=== PATIENT | male | born 1970 | race Caucasian/White ===

== ENCOUNTER 2017-01-18 15:05 | Outpatient (CLI) | payer OTHER | END 2017-01-18 15:06 | disposition home or self-care (01) | DX: G47.33 Obstructive sleep apnea (adult) (pediatric) (principal) ==

== ENCOUNTER 2021-04-16 15:49 | Outpatient (CLI) | payer OTHER ==
[2021-04-16 16:35] VITALS: BP 151/80
--- NOTE | 2021-04-16 16:35 | SLEEP CARE CONSULTATION ---
Information from patient questionnaire entered by Connie Arias. I have reviewed and concur with the information entered by Connie Arias. This document represents the service I personally performed and the decisions made by me, Adela Abrams ARNP. History of Present Illness Service Date and Time: 04/16/2021 1549 Reason for Visit: New patient, Other (Update supplies) Chief Complaint: reports: Other (just needs supplies) Usual bedtime: 8 PM Time it takes to fall asleep: 5-7 minutes Snores at night: No Observed to quit breathing while asleep: No Sleeps alone due to snoring: No Number of times waking at night: Once - maybe Reasons for waking at night: reports: Bathroom Toss, Turn, or Twitch while sleeping: No Recalls having dreams: No Usually gets out of bed at: 4 AM Feels refreshed in the morning: Yes Morning headache: No Sleepy or fatigued during the day: No Ever fallen asleep while driving: No Takes day naps: No Prior sleep studies: Yes Year and Where: 2012 [facility] Additional HPI information: MAGNUS COLON was previously diagnosed to have mild, AHI 10.2, obstructive sleep apnea-hypopnea syndrome and comes in today to re-establish care for CPAP. - Parasomnia Symptoms Ever been unable to move upon waking from sleep: No Walks in sleep: No Talks in sleep: No Ever acted out dreams in sleep: No Ever felt weak in the knees when startled or emotional: No Bothered by creepy, crawly, restless sensations in legs: No Problems with memory or concentration: No CPAP Compliance Data - Data Reviewed with Patient Average duration of nightly device use: 7 h 35 min Compliance rate %: 99 Current pressure setting (cmH2O): 12 Average residual AHI: 2.2 Compliance data discussion: He gets his supplies from [employer], but they don't take insurance anymore and he needs a new supplier. He is using a nasal pillows mask. He has a back up mask if needed. He changed his mask on Wednesday. He uses a So [employer]. Subjective Patient concerns: reports: condensation in mask/hose (occasionally in the mask, when laying on face). denies: aerophagia, mask discomfort, air blowing in eyes, mask leak noise, nasal congestion, dry mouth, nose, throat, epistaxis, other Observed to snore while using device: No Current pressure setting perceived as: comfortable On therapy, patient: reports: sleeping better, awakening more refreshed, being more awake and alert during the day, more rested overall. 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 Patient is and lives in [place]. Have you smoked in the past 12 months: No Alcohol use: No Caffeine use: Yes Caffeine amount and frequency: 12 oz bottle, 1-2 daily Family History Family history of sleep disordered breathing: No Allergies and Home Medications Drug allergies reviewed: Yes (NKDA) Home medication list reviewed: Yes Allergy and home medication list: Lisinopril 40 mg daily Review of Systems Weight gain over past 5 years: 10 Weight loss over past 5 years: ? Cardiovascular: reports: high blood pressure Gastrointestinal: denies: heartburn Neurological: denies: headaches Psychiatric: denies: anxiety, depression Ear/Nose/Throat: denies: tonsillectomy Immunologic: denies: allergies to food or environment Physical Exam Blood Pressure: 151/80 Cuff size: wrist Heart Rate: 55 O2 Saturation: 98 Height: 5 ft 9 in Weight: 244 lb Body Mass Index: 36.0 BMI Classification: Obese Heart: regular rate and rhythm Lungs: clear bilaterally Impression and Plan 1. Obstructive Sleep Apnea-Hypopnea Syndrome, mild, with excellent treatment compliance and good apnea control. On CPAP therapy, the patient has better sleep quality and is more rested overall. He states [employer] no longer takes his insurance so he needs a new supplier. I will have my nurse coordinator inform of DME options. A DWO prescription will then be made. Patient advised to contact this office if further supply problems. Patient has good compliance and is satisfied with his treatment. He states he cannot sleep without it. I will follow-up with him next year or sooner if needed. Patient's apnea severity and rationale for treatment to reduce apnea, improve sleep quality and reduce cardiovascular and cerebrovascular events was reviewed. I also reviewed the benefit of consistent device use of CPAP for hypertension. * Continue autoCPAP pressure at 12 cmH2O * Transfer DME * Update supplies as needed * Notify me if snoring with mask or feeling that the pressure is too much or too little * Attempt to lose weight * Call this office if any problems using CPAP * Return for follow up in 1 year, or sooner if concerns arise Counseling Topics: Spare mask, Weight loss health impact Visit Type: In Office Time Spent with Patient (minutes): 30 Provider Statement: I spent 100% of the Face to Face Visit with the patient with greater than 50% spent counseling the patient and coordination of care.
== END 2021-04-16 15:50 | disposition home or self-care (01) ==
LOC: SC 15:49
PROVIDERS: ATTEND Nurse Practitioner Family
DX: G47.33 Obstructive sleep apnea (adult) (pediatric) (principal); E66.01 Morbid (severe) obesity due to excess calories; Z68.36 Body mass index [BMI] 36.0-36.9, adult
CPT/HCPCS: 99203; 99212

== ENCOUNTER 2022-07-30 15:24 | Outpatient (CLI) | payer OTHER ==
[2022-07-30 15:50] VITALS: BP 138/86
--- NOTE | 2022-07-30 15:50 | SLEEP CARE CONSULTATION ---
Information from patient questionnaire entered by Candace Ramon. I have reviewed and concur with the information entered by Candace Ramon. This document represents the service I personally performed and the decisions made by me, Adela Abrams ARNP. History of Present Illness Service Date and Time: 07/30/2022 1524 Previous diagnosis: Mild, Obstructive Sleep Apnea-Hypopnea Syndrome AHI: 10.2 (in 2012) Reason for follow up: annual (LAST SEEN 04/2021 POS RESMED USER) Equipment type: CPAP (ResMed) Equipment obtained from: Other ([facility]; getting supplies) Mask style: Nasal pillows Mask brand: [employer] Backup mask available: Yes (other mask) Last cushion change: on Wednesday Prior sleep studies: Yes Year and Where: 2012 [facility] poly HPI additional information: MAGNUS COLON was diagnosed to have mild, AHI 10.2, obstructive sleep apnea- hypopnea syndrome and returned today for CPAP therapy annual follow-up. Sleep Study - Results Prior sleep studies: Yes Year and Where: 2012 [facility] poly CPAP Compliance Data - Data Reviewed with Patient Average duration of nightly device use: 7 hrs 37 min Compliance rate %: 100 (07/12/2021-03-30-; 180/180 days used) Current pressure setting (cmH2O): 12 Average residual AHI: 2.1 Central apnea: 0.1 Obstructive apnea: 1.7 Subjective Patient concerns: denies: aerophagia, mask discomfort, air blowing in eyes, mask leak noise, condensation in mask/hose, nasal congestion, dry mouth, nose, throat, epistaxis Observed to snore while using device: No Current pressure setting perceived as: comfortable On therapy, patient: reports: sleeping better, awakening more refreshed, being more awake and alert during the day, more rested overall. denies: drowsiness while driving Initial [place] Sleepiness Scale score: 4 (in 2020 (7 in 2012) Current [place] Sleepiness Scale score: 4 (07/30/2022) Allergies and Home Medications Drug allergies reviewed: Yes (NKDA) Home medication list reviewed: Yes (no changes) Review of Systems Review of systems same as previous: Yes (no changes) Physical Exam Vital signs obtained and entered by: CANDACE Couch MA Blood Pressure: 138/86 (left arm) Cuff size: long Heart Rate: 61 O2 Saturation: 98 Height: 5 ft 9 in Weight: 241 lb 12.8 oz Body Mass Index: 35.6 BMI Classification: Obese Impression and Plan 1. Obstructive Sleep Apnea-Hypopnea Syndrome, mild, with good treatment compliance and good apnea control. On CPAP therapy, the patient has better sleep quality and is more rested overall. Patient has a ResMed Airsense 10 that was last updated 02/2017. The patients CPAP is over 5 years old and of reasonable use. In addition, its modem is 3 G and no longer supported. Thus, the CPAP will be updated. A DWO prescription will be made. Compliance guidelines for new device and follow up discussed. Patient has significant improvement of their sleep apnea and are satisfied with current CPAP therapy. Patient denies problems with oral dryness, nasal congestion, epistaxis, skin irritation or aerophagia. Patient's apnea severity and rationale for treatment to reduce apnea, improve sleep quality and reduce cardiovascular and cerebrovascular events was reviewed. I also reviewed the benefit of consistent device use of CPAP for hypertension. 2. Obesity, unspecified. Currently patients BMI is 35.6. Obesity increases the risk of apnea, CPAP pressure requirements and overall health risks especially cardiovascular and diabetes. Thus patient is advised to lose weight. * Continue CPAP pressure at 12 cmH2O * Update machine * Updates supplies * Notify me if snoring with mask or feeling that the pressure is too much or too little * Attempt to lose weight * Call this office if any problems using CPAP * Return for follow up one month after obtaining new device, or sooner if concerns arise Counseling Topics: Spare mask, Weight loss health impact Visit Type: In Office Time Spent with Patient (minutes): 21 Provider Statement: I spent 100% of the Face to Face Visit with the patient with greater than 50% spent counseling the patient and coordination of care.
== END 2022-07-30 15:25 | disposition home or self-care (01) ==
LOC: SC 15:24
PROVIDERS: ATTEND Nurse Practitioner Family
DX: G47.33 Obstructive sleep apnea (adult) (pediatric) (principal); E66.9 Obesity, unspecified; Z68.35 Body mass index [BMI] 35.0-35.9, adult
CPT/HCPCS: 99212; 99213

== ENCOUNTER 2024-03-28 14:42 | Outpatient (CLI) | payer OTHER ==
--- NOTE | 2024-03-28 15:32 | Sleep Patient Instructions ---
Sleep Center Visit Summary - Patient Visit Information Reason for Visit: Annual follow-up - Patient Instructions Additional Instructions: You will continue with CPAP therapy with pressure set at 12 cmH2O. A supply prescription will be updated with your DME. We encourage you to continue to try to lose weight. Please follow up with the sleep care office in 1 year. - Clinic Information Contact[facility] [address] [place] [address] [email or web address] T: [phone]
--- NOTE | 2024-03-28 15:36 | SLEEP CARE CONSULTATION ---
Information from patient questionnaire entered by Dory Ramon. I have reviewed and concur with the information entered by Dory Ramon. This document represents the service I personally performed and the decisions made by me, Adela Abrams ARNP. History of Present Illness Service Date and Time: 03/28/2024 1442 Previous diagnosis: Mild, Obstructive Sleep Apnea-Hypopnea Syndrome AHI: 10.2 (in 2012) Reason for follow up: annual (LAST SEEN 07/2022) Equipment type: CPAP (ResMed NEED MACHINE) Equipment obtained from: Other ([facility]; getting supplies) Mask style: Nasal pillows Mask brand: Resmed (Airfit [id number]) Backup mask available: No Prior sleep studies: Yes Year and Where: 2012 [facility] poly HPI additional information: MAGNUS COLON was diagnosed to have mild, AHI 10.2, obstructive sleep apnea- hypopnea syndrome and returned today for CPAP therapy annual follow-up. Sleep Study - Results Prior sleep studies: Yes Year and Where: 2012 [facility] poly CPAP Compliance Data - Data Reviewed with Patient Average duration of nightly device use: 7 hours 59 minutes Compliance rate %: 99 (179/180 days used) Current pressure setting (cmH2O): 12 Average residual AHI: 2.1 Central apnea: 0.1 Obstructive apnea: 1.8 Average large leak: 0 L/min Subjective Patient concerns: denies: aerophagia, mask discomfort, air blowing in eyes, mask leak noise, condensation in mask/hose, nasal congestion, dry mouth, nose, throat, epistaxis Observed to snore while using device: No Current pressure setting perceived as: comfortable On therapy, patient: reports: sleeping better, awakening more refreshed, being more awake and alert during the day, more rested overall. denies: drowsiness while driving Initial [place] Sleepiness Scale score: 4 (in 2020 (7 in 2012) Current [place] Sleepiness Scale score: 0 Allergies and Home Medications Known drug allergies: No Drug allergies reviewed: Yes Home medication list reviewed: Yes (no changes) Review of Systems Review of systems same as previous: Yes (no changes) Physical Exam Vital signs obtained and entered by: ADELA LUONG Blood Pressure: 161/90 Cuff size: long (right arm) Heart Rate: 61 O2 Saturation: 97 Height: 5 ft 9 in Weight: 248 lb 9.6 oz Body Mass Index: 36.7 BMI Classification: Obese Impression and Plan 1. Obstructive Sleep Apnea-Hypopnea Syndrome, mild, with good treatment compliance and good apnea control. On CPAP therapy, the patient has better sleep quality and is more rested overall. Patient has been unable to get supplies since the first of the year. He finally contacted his insurance who said he should be getting supplies. We will update his supply prescription and send it to his DME. Patient has significant improvement of their sleep apnea and is satisfied with current CPAP therapy. Patient denies problems with oral dryness, nasal congestion, epistaxis, skin irritation or aerophagia. Patient's apnea severity and rationale for treatment to reduce apnea, improve sleep quality and reduce cardiovascular and cerebrovascular events was reviewed. I also reviewed the benefit of consistent device use of CPAP for hypertension. 2. Obesity, unspecified. Currently patients BMI is 36.7. Obesity increases the risk of apnea, CPAP pressure requirements and overall health risks especially cardiovascular and diabetes. Thus patient is advised to lose weight. * Continue CPAP pressure at 12 cmH2O * Update supply prescription * Notify me if snoring with mask or feeling that the pressure is too much or too little * Attempt to lose weight * Call this office if any problems using CPAP * Return for follow up in 12 months, or sooner if concerns arise Counseling Topics: Spare mask, Weight loss health impact Prescriptions: Device supplies Follow up with Sleep Care in: 1 year Visit Type: In Office Time Spent with Patient (minutes): 20 Provider Statement: I spent 100% of the Face to Face Visit with the patient with greater than 50% spent counseling the patient and coordination of care.
[2024-03-28 15:41] VITALS: BP 161/90; O2SAT 97
== END 2024-03-28 14:43 | disposition home or self-care (01) ==
LOC: SC 14:42
PROVIDERS: ATTEND Nurse Practitioner Family
DX: G47.33 Obstructive sleep apnea (adult) (pediatric) (principal); E66.9 Obesity, unspecified; Z68.36 Body mass index [BMI] 36.0-36.9, adult
CPT/HCPCS: 99212; 99213